=== PATIENT | female | born 1935 | race Caucasian/White ===

== ENCOUNTER 2016-09-19 20:08 | Emergency (ER) | payer MEDICARE ==
[~2016-09-19] VITALS: Ht 162.6 cm; Wt 52.0 kg
[~2016-09-19 20:08] MED LIST: LEVO75TA PO
[2016-09-19] MEDS ORDERED: LEVO25TA2 PO (20:26)
[2016-09-19] MEDS ORDERED: SODIUM CHLORIDE 0.9% 1,000ML IVBOLUS ONE (21:00)
[2016-09-19 21:31] LABS: BLOOD UREA NITROGEN 19 mg/dL (7-18)
[2016-09-19 21:42] LABS: ASPARTATE AMINO TRANSFERASE 27 U/L (15-37)
[2016-09-19 21:49] LABS: IS PT STATUS REG ER OR PRE ER? YES
[2016-09-19 22:32] VITALS: BP 143/83
== END 2016-09-19 23:06 | disposition home or self-care (01) ==
LOC: MERGE 20:08 → ED 23:01
DX: I95.1 Orthostatic hypotension (principal); E03.9 Hypothyroidism, unspecified; Z90.710 Acquired absence of both cervix and uterus; Z88.0 Allergy status to penicillin
CPT/HCPCS: 36415; 71010; 80053; 81003; 84443; 84484; 85025; 93005; 96360; 96361; 99285; J7030